=== PATIENT | male | born 1965 | race Caucasian/White ===

== ENCOUNTER 2017-10-05 23:21 | Emergency (ER) | payer SELFPAY ==
[~2017-10-05] VITALS: Ht 172.7 cm; Wt 102.5 kg
[2017-10-05 23:37] VITALS: BP 141/91; Ht 172.7 cm; Wt 102.5 kg
== END 2017-10-05 23:51 | disposition left against medical advice (07) ==
LOC: ED 23:21
DX: Z53.21 Procedure and treatment not carried out due to patient leaving prior to being seen by health care provider (principal)